=== PATIENT | male | born 1990 | race Caucasian/White ===

== ENCOUNTER 2018-06-07 20:56 | Emergency (ER) | payer BC ==
[~2018-06-07] VITALS: Ht 188 cm; Wt 90.7 kg
[~2018-06-07 20:56] MED LIST: CIPRSO RIGHTEYE; ERYT.5TO LEFTEYE; HYDACE5325 PO; OXYC10ER PO
[2018-06-07] MEDS ORDERED: Cleocin HCl300 MG PO (21:21)
[2018-06-07] MEDS ORDERED: IBUP600 PO (21:21)
== END 2018-06-07 21:30 | disposition home or self-care (01) ==
LOC: ER 20:56
DX: K02.9 Dental caries, unspecified (principal); F17.210 Nicotine dependence, cigarettes, uncomplicated
CPT/HCPCS: 99282